=== PATIENT | male | born 1960 | race Caucasian/White ===

== ENCOUNTER 2016-10-01 16:36 | Emergency (ER) | payer OTHER ==
--- NOTE | ~2016-10-01 | CR20 ---
[facility] A Service of [facility] & [facility] RADIOLOGY TEXT RESULTS PATIENT: DANTE COOK LOCATION: [facility] : 64 UNIT #: [id number] AGE: [address]: Lindsay Brown SEX: M ORDER DR: [id number] [facility] [address] [place], [place] [address] [id number] E MR#: [id number] Acc #: [id number] NAME: DANTE COOK : 1960 SEX: M STUDY DATE/TIME: 10/01/2016 17:27 UNIT: [facility] ROOM: STUDY DESCRIPTION: CR Ankle Min 3 Views Lt Attending Physician: Lindsay Brown P.A.-C. Ordering Physician: Lindsay Brown P.A.-C. Primary Care Physician: Jose Martin Norton M.D. MEDICAL IMAGING REPORT This report is preliminary unless electronic signature is present EXAM Left ankle HISTORY Ankle pain, trauma today after falling TECHNIQUE Three views of the ankle were obtained. FINDINGS 3 views of the ankle show plantar heel spur. There is extensive degenerative change at the medial malleolus. There is mild degenerative change of the lateral malleolus. There is no evidence of fracture. The ankle mortise is symmetric. IMPRESSION Degenerative changes of the ankle. Plantar heel spur. No acute fracture noted. Dictated by... Dante Caceres M.D. THIS IS AN ELECTRONICALLY VERIFIED REPORT Dante Caceres M.D. at 10/01/2016 10:18 PM EDISON/kenny TD: 10/01/2016 19:21 JOB #: [id number] MEDICAL IMAGING REPORT Page 1 of 1 COPY
--- NOTE | ~2016-10-01 | CR210 ---
[facility] A Service of [facility] & [facility] RADIOLOGY TEXT RESULTS PATIENT: DANTE COOK LOCATION: [facility] : 64 UNIT #: [id number] AGE: [address]: Lindsay Brown SEX: M ORDER DR: [id number] [facility] [address] [place], [place] [address] [id number] E MR#: [id number] Acc #: [id number] NAME: DANTE COOK. : 1960 SEX: M STUDY DATE/TIME: 10/01/2016 17:11 UNIT: [facility] ROOM: STUDY DESCRIPTION: CR Ribs Uni 2 View W PA Ch Lt Attending Physician: Lindsay Brown P.A.-C. Ordering Physician: Lindsay Brown P.A.-C. Primary Care Physician: Jose Martin Norton M.D. MEDICAL IMAGING REPORT This report is preliminary unless electronic signature is present EXAM Chest and left rib series 10/01/2016 HISTORY A 56-year-old male in the ED with left side rib pain after fall today. TECHNIQUE PA upright chest x-ray with three-view left rib series. FINDINGS No acute left rib fractures identified. The lungs are expanded and clear. No visible pneumothorax, pulmonary infiltrate or pleural effusion. Cardiomediastinal silhouette is normal. IMPRESSION Negative chest and left rib series. Dictated by... Mark Lee M.D. THIS IS AN ELECTRONICALLY VERIFIED REPORT Mark Lee M.D. at 10/03/2016 11:13 AM Julienne TD: 10/01/2016 19:27 JOB #: [id number] MEDICAL IMAGING REPORT Page 1 of 1 COPY
--- NOTE | ~2016-10-01 | CR126 ---
[facility] A Service of [facility] & [facility] & [facility] RADIOLOGY TEXT RESULTS PATIENT: DANTE COOK LOCATION: [facility] : 64 UNIT #: [id number] AGE: [address]: Lindsay Brown SEX: M ORDER DR: [id number] [facility] [address] [place], [place] [address] [id number] E MR#: [id number] Acc #: [id number] NAME: DANTE COOK : 1960 SEX: M STUDY DATE/TIME: 10/01/2016 17:23 UNIT: [facility] ROOM: STUDY DESCRIPTION: CR Foot Complete Min 3 View Lt Attending Physician: Lindsay Brown P.A.-C. Ordering Physician: Lindsay Brown P.A.-C. Primary Care Physician: Jose Martin Norton M.D. MEDICAL IMAGING REPORT This report is preliminary unless electronic signature is present EXAM Left foot. HISTORY Foot pain after falling today. TECHNIQUE 3 views of the foot were obtained. FINDINGS 3 views of the foot show a plantar heel spur. There is also spur formation at the medial malleolus. There is no evidence of fracture. No bone destruction is seen. IMPRESSION No fracture seen. Plantar heel spur noted. Dictated by... Dante Caceres M.D. THIS IS AN ELECTRONICALLY VERIFIED REPORT Dante Caceres M.D. at 10/01/2016 10:18 PM EDISON/joanie TD: 10/01/2016 19:38 JOB #: [id number] MEDICAL IMAGING REPORT Page 1 of 1 COPY
[~2016-10-01 16:36] MED LIST: AZITHROMYCIN250 MG PO; PREDNISONE PO
== END 2016-10-01 18:25 | disposition home or self-care (01) ==
LOC: CED 16:36 → CFTX 16:36
DX: S93.492A Sprain of other ligament of left ankle, initial encounter (principal); E11.9 Type 2 diabetes mellitus without complications; I48.91 Unspecified atrial fibrillation; I11.0 Hypertensive heart disease with heart failure; I50.9 Heart failure, unspecified; W19.XXXA Unspecified fall, initial encounter; Y92.009 Unspecified place in unspecified non-institutional (private) residence as the place of occurrence of the external cause
CPT/HCPCS: 29515; 71101; 73610; 73630; 99284

== ENCOUNTER → 2017-01-10 | Outpatient (CLI) | payer OTHER ==
--- NOTE | ~2017-01-10 | CT98 ---
[facility] A Service of [facility] & [facility] RADIOLOGY TEXT RESULTS PATIENT: DANTE COOK LOCATION: [facility] : 64 UNIT #: [id number] AGE: [address]: Keyon Clifton MD SEX: M ORDER DR: [id number] [facility] [address] [place], [place] [address] [id number] O MR#: [id number] Acc #: [id number] NAME: DANTE COOK. : 1960 SEX: M STUDY DATE/TIME: 01/10/2017 9:53 UNIT: [facility] ROOM: STUDY DESCRIPTION: CT Lumbar Spine Wo Cont Attending Physician: Keyon Clifton M.D. Referring Physician: Keyon Clifton M.D. Ordering Physician: Keyon Clifton M.D. Primary Care Physician: Jose Martin Norton M.D. MEDICAL IMAGING REPORT This report is preliminary unless electronic signature is present EXAM Lumbar spine CT, no contrast, 01/10/2017. CLINICAL HISTORY Remote prior history of fall and two subsequent surgeries and chronic low back pain for at least 20 years. More recent fall in September 2016 with increased low back pain since that time. COMPARISON None. PROCEDURE Axial unenhanced lumbar spine CT with multiplanar reformats. This CT exam was performed with one or more of the following radiation dose reduction techniques: automatic exposure control, adjustment of mA and/or kV according to patient size, and iterative reconstruction. COMPARISON None. FINDINGS There has been prior lumbar fusion. 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 There is partial osseous union across the 5-1 disc, but no definite osseous union across the 4-5 disc. Alignment is normal and there is no fracture or bone erosion or destruction. The paraspinous tissues are unremarkable though there is some degenerative change in the sacroiliac joints. At L1-2, there is no canal stenosis or foraminal stenosis. At L2-3, there is a slight disc bulge and facet arthropathy and borderline [facility] A Service of [facility] & [facility] RADIOLOGY TEXT RESULTS PATIENT: DANTE COOK LOCATION: [facility] : 64 UNIT #: [id number] AGE: [address]: Keyon Clifton MD SEX: M ORDER DR: to mild canal stenosis, but no more than borderline bilateral foraminal narrowing. At L3-4, there is disc and endplate change and facet arthropathy and moderate canal stenosis, and mild right and cowh-hw-owjrptxk left foraminal stenosis. At L4-5, there is no canal stenosis, there is probably at least mild or rpno-yd-xkwjxdno bony left foraminal narrowing and minimal right foraminal narrowing. At 5-1, there is no canal stenosis, but there is mild or lioq-lf-ohbrunas right and xnvt-hk-xlmotivx or moderate left foraminal narrowing, though again there is solid osseous union at that level. IMPRESSION Status post fusion. No evidence of fusion device loosening or failure. No acute abnormality. See above for level by level details. Dictated by... Kash Bradley M.D. THIS IS AN ELECTRONICALLY VERIFIED REPORT Kash Bradley M.D. at 01/13/2017 9:06 AM NICHOLAS/joanie TD: 01/10/2017 22:27 JOB #: [id number] MEDICAL IMAGING REPORT Page 1 of 1 COPY
== END | disposition home or self-care (01) ==
LOC: CCAT 09:33
DX: M54.5 Low back pain (principal); M99.83 Other biomechanical lesions of lumbar region; M48.06 Spinal stenosis, lumbar region; M46.96 Unspecified inflammatory spondylopathy, lumbar region; M47.897 Other spondylosis, lumbosacral region; M51.86 Other intervertebral disc disorders, lumbar region; Z98.1 Arthrodesis status
CPT/HCPCS: 72131